=== PATIENT | female | born 1985 | race Two or more races ===

== ENCOUNTER 2016-07-27 20:32 | Emergency (ER) | payer OTHER ==
[2016-07-27 20:53] VITALS: BP 137/77; PULSE 73; RESP 16; TEMP 98.1; O2SAT 94
--- NOTE | 2016-07-27 21:21 | EDPHY ---
H & P Time Seen by Provider: 07/27/16 21:04 HPI/ROS: HPI Head injury. 31-year-old female by private vehicle with her son. She was at work. She had a ceiling fan fall and hit the top of her head. Questionable loss of consciousness. She complains of a headache to the top of her head. She has not had any vomiting. No neck pain. No numbness or weakness in her extremities. She states that the fan knocked her to the ground. No photophobia. No other complaints. ROS: Constitutional: No fever, no chills. No weakness. Eyes: No discharge. No changes in vision. As above. ENT: No sore throat. No nasal congestion or rhinorrhea. Respiratory: No cough. No shortness of breath. Cardiac: No chest pain, no palpitations. Gastrointestinal: No abdominal pain, no vomiting, no diarrhea. Genitourinary: No hematuria. No dysuria or increased frequency with urination. Musculoskeletal: No back pain. No neck pain. No myalgias or arthralgias. Skin: No rashes. No bleeding lacerations. Neurological: As above. No focal weakness or altered sensation. Past medical history: No significant past medical history. She is not on any antiplatelet or anticoagulant medications. Social history: Here with her son. No alcohol. Nonsmoker. Physical Exam: General Appearance: Alert, no distress. This patient is responding to questions appropriately and in full sentences. This patient appears well- hydrated and well-nourished. Head: Normocephalic atraumatic. I do not appreciate any significant hematoma. No scalp lacerations. No bony step-off or deformity on palpation of her scalp. She is tender mid posterior parietal scalp. There is no erythema, edema or ecchymosis noted. Face: Facial bones are stable on palpation. Eyes: Pupils equal and round and reactive to light, no pallor or injection. No lid erythema or edema. ENT, Mouth: Mucous membranes moist. Dentition is intact. No malocclusion of the jaw. No tongue lacerations or abrasions. Pharynx is clear. The bilateral nasal canals are clear. Respiratory: There are no retractions, lungs are clear to auscultation with good air movement bilaterally. Chest wall is stable to AP and lateral palpation. Cardiovascular: Regular rate and rhythm. No murmur. Neurological: Motor sensory function is intact. Cranial nerves are normal. Cerebellar function intact. Skin: Warm and dry, no rashes. No lacerations, abrasions or contusions. Musculoskeletal: Neck is supple and nontender. The trachea is midline. No midline cervical, thoracic, lumbar or sacral tenderness on palpation. No flank tenderness on palpation. Extremities are symmetrical, full range of motion. All joints in the bilateral upper and bilateral lower extremities range without pain or impingement. No tenderness on palpation of the long bones in the bilateral upper and bilateral lower extremities. Psychiatric: No agitation. No depression. Database: EKG: Imaging: Procedures: Emergency department course: She appears well. I do not feel that she requires CT imaging at this time. She feels comfortable going home with her son. Head injury precautions and return to emergency department precautions were reviewed with her and her son thoroughly. Follow-up was discussed. All of her questions were answered. She was discharged in good condition. Differential Diagnosis: The differential diagnosis on this patient includes but is not limited to minor head injury. Traumatic brain injury, subarachnoid hemorrhage, subdural hematoma , epidural hematoma, cervical spine injury, other significant traumatic injury unlikely. This represents a partial list of diagnoses considered. These considerations are based on history, physical exam, past history, reassessment and diagnostic testing. Smoking Status: Never smoked Constitutional: Initial Vital Signs Temperature (C) 36.7 C 07/27/16 20:40 Heart Rate 73 07/27/16 20:40 Respiratory Rate 16 07/27/16 20:40 Blood Pressure 137/77 H 07/27/16 20:40 O2 Sat (%) 94 07/27/16 20:40 O2 Delivery Mode Room Air Allergies/Adverse Reactions: No Known Allergies Allergy (Verified 07/27/16 20:47) Home Medications: Medication Instructions Recorded NK [No Known Home Meds] 07/27/16 Departure - Departure Disposition: Home, Routine, Self-Care Clinical Impression: Head injury Condition: Good Instructions: Head Injury (ED) Additional Instructions: Read and follow provided instructions. Follow-up with your primary care physician in 1-2 days for re-evaluation. Ibuprofen dosin mg every 6 hours with meals for the next 3 days only. Take only as needed for pain. Return to the emergency department for worsening headache, vomiting, changes in vision, loss of sensation or weakness in her extremities, neck pain or other serious concerns. Referrals: NONE *PRIMARY CARE P,. [Primary Care Provider] - As per Instructions
== END 2016-07-27 21:28 | disposition home or self-care (01) ==
LOC: CED 20:32
DX: S09.90XA Unspecified injury of head, initial encounter (principal); W20.8XXA Other cause of strike by thrown, projected or falling object, initial encounter; Y92.69 Other specified industrial and construction area as the place of occurrence of the external cause; Y99.0 Civilian activity done for income or pay; Y93.89 Activity, other specified